=== PATIENT | female | born 1950 | race African-American/Black ===

== ENCOUNTER 2022-05-26 13:05 | Emergency (ER) | payer MEDICARE, OTHER ==
[~2022-05-26] VITALS: Ht 170.2 cm; Wt 94.8 kg
--- NOTE | 2022-05-26 13:05 | NUR ---
CALLED CODE STROKE
--- NOTE | 2022-05-26 13:08 | NUR ---
20 g R forearm x 2
--- NOTE | 2022-05-26 13:08 | NUR ---
PT TO CT VIA [employer].
--- NOTE | 2022-05-26 13:11 | NUR ---
CALLED [facility] [phone] MARCELA MILLER.
[2022-05-26] MEDS ORDERED: IOHEXOL-350 100 ML VIAL IV ONE (13:15)
[2022-05-26] MEDS ORDERED: FERR325T24 PO (13:15)
[2022-05-26] MEDS ORDERED: BISA10SU11 RC (13:15)
[2022-05-26] MEDS ORDERED: ACET-2605 PO (13:15)
[2022-05-26] MEDS ORDERED: FAMO20TA8 PO (13:15)
[2022-05-26] MEDS ORDERED: ACET-868 PO (13:15)
[2022-05-26] MEDS ORDERED: SENN-261 PO (13:15)
[2022-05-26] MEDS ORDERED: MAGN400O6 PO (13:15)
[2022-05-26] MEDS ORDERED: CT SWABBABLE VALVE TRANS SET 1 EA INFUS.SET MC ONE (13:15)
[2022-05-26] MEDS ORDERED: IV NS 0.9% 250 ML IV ONE (13:15)
[2022-05-26] MEDS ORDERED: DOCU-141 PO (13:15)
[2022-05-26] MEDS ORDERED: ATEN25TA PO (13:15)
[2022-05-26] MEDS ORDERED: DIPH1TAB PO (13:15)
[2022-05-26] MEDS ORDERED: NA P133E RC (13:15)
--- NOTE | 2022-05-26 14:20 | NUR ---
BLOOD SAMPLES OBTAINED
--- NOTE | 2022-05-26 14:45 | NUR ---
URINE SAMPLE OBTAINED
[2022-05-26 14:46] LABS: BASOPHILS % (AUTO) 0.2 % (0.0-2.0); HEMATOCRIT 34 % (33-45); HEMOGLOBIN 11.1 g/dL (11.5-14.8); LYMPHOCYTES # (AUTO) 0.7 K/uL (0.8-4.8); LYMPHOCYTES % (AUTO) 33.1 % (20.0-44.0); MEAN CORPUSCULAR HGB CONC 33 g/dl (31.0-36.0); MEAN CORPUSCULAR VOLUME 93 fL (82-100); MONOCYTES # (AUTO) 0.2 K/uL (0.1-1.30); MONOCYTES % (AUTO) 7.7 % (2.0-12.0); NEUTROPHILS # (AUTO) 1.2 K/uL (1.8-8.9); PLATELET COUNT (AUTO) 135 K/uL (150-450); RED BLOOD CELL COUNT(AUTO) 3.66 MIL/uL (4.0-5.2); WHITE BLOOD COUNT (AUTO) 2.1 K/uL (4.3-11.0)
--- NOTE | 2022-05-26 14:50 | NUR ---
COVID SWAB OBTAINED
[2022-05-26 14:58] LABS: CALCIUM, SERUM 9.2 mg/dL (8.5-10.1); CARBON DIOXIDE 31 mmol/L (21-32); CHLORIDE 104 mmol/L (98-107); GLUCOSE 81 mg/dL (74-106); POTASSIUM 3.8 mmol/L (3.5-5.1); SODIUM SERUM 137 mmol/L (136-145); UREA NITROGEN, BLOOD 13 mg/dL (7-18)
--- NOTE | 2022-05-26 15:26 | NUR ---
DR. LAINEZ FROM [facility] SPEAKING WITH DR. SAKER. MEEK FROM [facility] CALLED [phone]
--- NOTE | 2022-05-26 15:27 | NUR ---
BRADEN MEEK FAX [phone]
[2022-05-26] MEDS ORDERED: BISACODYL SUPP (10 MG) 10 MG/SUPP.RECT SUPP.RECT RC PRN (15:30)
[2022-05-26] MEDS ORDERED: ENOXAPARIN SODIUM 40 MG/0.4 ML DISP.SYRIN SQ SCH (15:30)
[2022-05-26 15:40] LABS: ALBUMIN 3.3 g/dL (3.4-5.0); BILIRUBIN,DIRECT 0.2 mg/dL (0.0-0.2); BILIRUBIN,TOTAL 0.5 mg/dL (0.2-1.0); TOTAL PROTEIN, SERUM 7.7 g/dL (6.4-8.2)
--- NOTE | 2022-05-26 15:43 | NUR ---
ACCEPTED TO [facility] UNDER DR. LAINEZ ROOM [id number]. PLEASE CALL [phone] FOR REPORT. CHICO GONSALES WILL COLLECT PT AT [phone]
[2022-05-26 16:06] LABS: BILIRUBIN,URINE NEGATIVE (NEGATIVE); COLOR,URINE YELLOW (YELLOW); LEUKOCYTE ESTERASE ,URINE 1+ (NEGATIVE); NITRITE, URINE NEGATIVE (NEGATIVE); PROTEIN,URINE TRACE mg/dl (NEGATIVE); UGLUCOSE NEGATIVE (NEGATIVE)
--- NOTE | 2022-05-26 16:30 | NUR ---
Report given to CARLA Roa at [facility]
[2022-05-26 17:10] LABS: BACTERIA,URINE 2+ /HPF (None Seen); RBC,URINE 0-2 /HPF (0-2); SQUAMOUS EPITHELIAL CELL,UR 0-2 /HPF (None Seen)
--- NOTE | 2022-05-26 17:13 | NUR ---
Patient transported from hospital via stretcher accompanied by 2 precision machining instructor. Patient stable at time of discharge.
[2022-05-26 17:14] VITALS: BP 176/86
[2022-05-26] MEDS ORDERED: BLOOD SUGAR DIAGNOSTIC 1 EACH STRIP IN SCH ×2 (17:30→18:00)
[2022-05-26 18:20] LABS: BAND % (MANUAL) 2 % (0.0-5.0); EOSINOPHILS % (MANUAL) 4 % (0-4); LYMPHOCYTES % (MANUAL) 38 % (16-48); MONOCYTES % (MANUAL) 2 % (0-11.0); NEUTROPHILS % (MANUAL) 54 (42-76)
[2022-05-26] MEDS ORDERED: SENNOSIDES 8.6 MG TABLET PO SCH (22:00)
[2022-05-26] MEDS ORDERED: SIMVASTATIN 20 MG TABLET PO SCH (22:00)
[2022-05-27] MEDS ORDERED: FERROUS SULFATE (325 MG) 325 MG/TAB TABLET PO SCH (09:00)
[2022-05-27] MEDS ORDERED: PANTOPRAZOLE 40 MG VIAL IV SCH (09:00)
[2022-05-27] MEDS ORDERED: ATENOLOL 25 MG TABLET PO SCH (09:00)
[2022-05-27] MEDS ORDERED: DOCUSATE SODIUM 100 MG CAPSULE PO SCH (09:00)
--- NOTE | 2022-05-27 16:41 | NUR ---
SS consult requested for stroke over the weekend. However, pt. has departed.
== END 2022-05-26 17:15 | disposition short-term general hospital (02) ==
LOC: ER 13:13
DX: R41.82 Altered mental status, unspecified (principal); R53.1 Weakness; R51.9 Headache, unspecified; Z20.822 Contact with and (suspected) exposure to COVID-19; I10 Essential (primary) hypertension; Z79.899 Other long term (current) drug therapy
CPT/HCPCS: 99291; 70498; 93307; 71045; 87426; 80061; 93005; 70496; 85025; 80048; 87086; 83605; 80076; 83036; 81001; 36415; 84443; 84484; 85730; 87040 ×2; 87081; 70450; 85007; J7050; Q9967; C9803